=== PATIENT | female | born 2000 | race Caucasian/White ===

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

== ENCOUNTER 2022-08-03 21:19 | Outpatient (REF) | payer OTHER, SELFPAY | END 2022-08-03 21:20 | disposition home or self-care (01) | LOC: LBN 21:19 | PROVIDERS: Visit Provider Nurse Practitioner Family | DX: J02.9 Acute pharyngitis, unspecified (principal) | CPT/HCPCS: 87070 ==

== ENCOUNTER 2023-01-28 16:00 | Emergency (ER) | payer OTHER, SELFPAY ==
[2023-01-28 16:17] VITALS: BP 122/75; PULSE 62; RESP 14; TEMP 37.2; O2SAT 98
[2023-01-28 16:37] LABS: Bilirubin Negative (Negative); Blood Negative (Negative); Clarity Clear (Clear); Glucose Negative (Negative); Ketones Trace mg/dL (Negative); Leukocyte Esterase Moderate (Negative); Nitrite Negative (Negative); Specific Gravity 1.025 (1.005-1.025); pH 8.5 (5-8)
[2023-01-28 16:46] LABS: Bacteria Few HPF (Negative); C & S Indicated? Yes; Casts Negative LPF (Negative); Crystals Negative HPF (Negative); Epithelial Cells Few HPF (Negative); Mucus Negative (Negative); RBC 0-2 HPF (0-2)
[2023-01-28] MEDS: Fluconazole 150 MG TAB PO (17:42)
[2023-01-28] MEDS: predniSONE 20 MG TAB PO (17:42)
[2023-01-28 17:58] VITALS: BP 121/46; PULSE 67; TEMP 36.7; O2SAT 98
--- NOTE | 2023-01-28 22:18 | W.ED.GENAD ---
Discharge Plan Disposition Patient Disposition: Home Discharge Details Clinical Impression: Vulvovaginitis Primary Care Provider: Unknown,Unknown ED Provider: Veronika Altamirano Home Meds and New Rx's Prescriptions: New prednisone 20 mg tablet 20 mg PO DAILY Qty: 4 0RF Continued Mirena 21 mcg/24 hours (8 yrs) 52 mg intrauterine device 1 device intrauterine ONCE Rx Instructions: as a single dose Discharge Instructions Additional Instructions: You received a dose of Diflucan, I will call you regarding the results of your test if this is not yeast Diflucan will treat a yeast infection, you will not need to apply applicators The steroid will likely help with the swelling You may apply some topical 1% hydrocortisone, do not use this more than twice a day for the next 3 days, you may also take Benadryl 25 to 50 mg every 6 hours as needed for itching Cool cloths can help sooth Please return earlier should you have new or worsening complaints Stand Alone Forms: School Release Discharge Data Discharge Date/Time-TO BE ENTERED AT DEPARTURE: 01/28/23 18:00 Medical Decision Making Patient presents with vaginal irritation, swelling, and itching for the past 2 days Sexually active and monogamous with her partner, denies known trauma or new lubricants Last intercourse on Saturday Vaginal exam, Monistat in place, difficult assessment, irritation, angioedema to labia noted, prednisone initiated, will apply 3 days of topical hydrocortisone and Benadryl Given a single dose of Diflucan pending vaginal pathogen return Interestingly vaginal path specimen does not show evidence of yeast, trichomonas, or bacterial vaginosis Return precautions reviewed and patient expressed understanding HPI General Date/Time Provider Initiated Documentation: 01/28/23 16:25. HPI Narrative: 22-year-old female presents with itchy vaginal discharge started on Saturday. Denies any change in products, has tried Monistat without relief in symptoms. Denies any abdominal pain, fever or chills, sexually active and monogamous with her boyfriend reportedly. Denies chance of . 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: 3 PFSH All Active Problems (Updated 01/28/23 @ 17:42 by FUNMI Heck) Vulvovaginitis (Acute) Social History Smoking/Tobacco Use Status: Never Smoking risk assessment performed?: Yes Alcohol Intake: current Drug use: Never Substance use type: does not use Course Vital Signs Vital signs: Vital Signs Temperature 37.2 C 01/28/23 16:17 Pulse 62 01/28/23 16:17 Respiratory Rate 14 01/28/23 16:17 Blood Pressure 122/75 01/28/23 16:17 Pulse Oximetry 98 01/28/23 16:17 Temperature 36.7 C 01/28/23 17:58 Temperature Source Skin 01/28/23 16:17 Pulse 67 01/28/23 17:58 Respiratory Rate 14 01/28/23 16:17 Respiratory Effort Normal 01/28/23 16:48 Blood Pressure 121/46 L 01/28/23 17:58 Blood Pressure Position Sitting 01/28/23 16:17 Pulse Oximetry 98 01/28/23 17:58 Oxygen Delivery Method Room Air 01/28/23 16:17 Oxygen Flow Rate 0 01/28/23 16:17 Pain Level 8 01/28/23 16:46 Lab/Test Results Lab/Test Results: 01/28/23 17:34 Vaginal Vaginitis Screen - Pending 01/28/23 16:27 Urine - Reflex from Ua Urine Culture - Pending Laboratory Tests Range/Units 01/28/23 16:27 Urine Color (Yellow) Yellow Urine Clarity (Clear) Clear Urine pH (5-8) 8.5 H Ur Specific [place] (1.005-1.025) 1.025 Urine Protein (Negative) mg/dL 30 H Urine Ketones (Negative) mg/dL Trace H Urine Blood (Negative) Negative Urine Nitrite (Negative) Negative Urine Bilirubin (Negative) Negative Urine Urobilinogen (Up to 0.2) mg/dL 2.0 H Ur Leukocyte Esterase (Negative) Moderate H Urine RBC (0-2) HPF 0-2 Urine WBC (0-5) HPF 3-5 Ur Epithelial Cells (Negative) HPF Few Urine Crystals (Negative) HPF Negative Urine Bacteria (Negative) HPF Few Urine Casts (Negative) LPF Negative Urine Mucus (Negative) Negative Ur Culture Indicated? Yes Urine Glucose (Negative) mg/dL Negative POC Urine Test Start: 01/28/23 16:24 Freq: Status: Complete Protocol: Document 01/28/23 16:29 JARON (Rec: 01/28/23 16:30 JARON [id number]) Test(Urine)-POC POC- Test(urine) Negative POC- Test(urine) Negative PAWSS Have you Been Recently Intoxicated or Drunk Within the Last 30 days?: No Have you Ever Experienced Previous Episodes of Alcohol Withdrawal?: No Have you ever Experienced Withdrawal Seizures?: No Have you ever Experienced Delirium Tremens(DT)s?: No Have you ever undergone Alcohol Rehabilitation Treatment (i.e, inpt ot outpatient treatment programs)?: No Have you ever Experienced Blackouts?: No Have you ever Combined Alcohol with other Downers within the last 90 days?: No Have you ever Combined Alcohol with any other Substance of Abuse during the last 90 days?: No Result: 0
[2023-01-30 13:35] LABS: Chlamydia Result Negative (Negative); GC Result Negative (Negative)
== END 2023-01-28 18:00 | disposition home or self-care (01) ==
PROVIDERS: Emergency Provider Physician Assistant
DX: N76.0 Acute vaginitis (principal)
CPT/HCPCS: 81025; 87491; 87591; 99283; 81003; 81015; 87086; 87480; 87510; 87660; 99284; J7512

== ENCOUNTER 2023-02-15 18:44 | Emergency (ER) | payer OTHER, SELFPAY ==
[2023-02-15 18:49] VITALS: BP 114/84; PULSE 60; RESP 18; O2SAT 100
[2023-02-15 20:17] VITALS: RESP 18
[2023-02-15] MEDS: Fluconazole 150 MG TAB PO (22:21)
[2023-02-15 22:24] VITALS: PULSE 66; RESP 17; TEMP 36.8; O2SAT 99
--- NOTE | 2023-02-16 18:46 | ED.GENADUL_ITS ---
Discharge Plan Disposition Patient Disposition: Home Condition: Stable Discharge Details Clinical Impression: Vulvovaginitis Primary Care Provider: Unknown,Unknown ED Provider: Veronika Altamirano Home Meds and New Rx's Prescriptions: New fluconazole [Diflucan] 150 mg tablet 150 mg PO Q3D Qty: 1 1RF Continued Mirena 21 mcg/24 hours (8 yrs) 52 mg intrauterine device 1 device intrauterine ONCE Rx Instructions: as a single dose prednisone 20 mg tablet 20 mg PO DAILY Qty: 4 0RF Discharge Instructions Additional Instructions: please follow-up with the assistant real estate manager at your scheduled appt take the next dose of diflucan on Saturday return with fever, chills, or with any new or worsening complaints Discharge Data Discharge Date/Time-TO BE ENTERED AT DEPARTURE: 02/15/23 22:29 Medical Decision Making 22-year-old female presenting with vaginal discharge, took a dose of Diflucan and some prednisone for significant swelling to her labia and had mild improvement initially now her symptoms are much worse and she has excessive vaginal discharge which is white, pelvic exam shows significant caseous material to the entire vaginal vault with erythematous vagina and labia, likely consistent with yeast, will order 2 doses of Diflucan, 72 hours apart and a third dose should she need it in addition to metronidazole as her vaginal path specimen came back positive for Gardnerella and yeast, will likely call in Flagyl, call made to patient, pending return call at this time, no pelvic pain appreciated, afebrile and nontoxic in appearance Has an appointment with GEOSPATIAL DEVELOPER reportedly on Saturday HPI General Date/Time Provider Initiated Documentation: 02/15/23 18:49 . HPI Narrative: This 22-year-old female presents with vaginal discharge for the past several weeks, initially came in with vaginal swelling and concern for yeast, used a dose of Diflucan without improvement, feels as though the prednisone helped her symptoms until they worsened dramatically over the course of the past several days. Denies chance of . Had recent STD testing per patient. No new partner, sexually active and monogamous per patient. Related Data Home Medications Medication Instructions Recorded Confirmed levonorgestrel 21 mcg/24 hours (8 1 device intrauterine ONCE 08/03/22 01/28/23 yrs) 52 mg intrauterine device (Mirena) prednisone 20 mg tablet 20 mg PO DAILY #4 tabs 01/28/23 fluconazole 150 mg tablet 150 mg PO Q3D 2 doses #1 tab 02/15/23 (Diflucan) Previous Rx's Medication Instructions Recorded prednisone 20 mg tablet 20 mg PO DAILY #4 tabs 01/28/23 fluconazole 150 mg tablet 150 mg PO Q3D 2 doses #1 tab 02/15/23 (Diflucan) Allergies Allergy/AdvReac Type Severity Reaction Status Date / Time No Known Allergies Allergy Verified 01/28/23 16:50 General Stated Complaint: [employer] IVET: 3 PFSH All Active Problems (Updated 02/15/23 @ 22:08 by FUNMI Heck) Vulvovaginitis (Acute) Social History Smoking/Tobacco Use Status: Never Smoking risk assessment performed?: Yes Alcohol Intake: current Drug use: Never Substance use type: does not use Course Vital Signs Vital signs: Vital Signs Pulse 60 02/15/23 18:49 Respiratory Rate 18 02/15/23 18:49 Blood Pressure 114/84 02/15/23 18:49 Pulse Oximetry 100 02/15/23 18:49 Temperature 36.8 C 02/15/23 22:24 Pulse 66 02/15/23 22:24 Respiratory Rate 17 02/15/23 22:24 Respiratory Effort Normal, Non-Labored 02/15/23 20:17 Respiratory Depth Normal 02/15/23 20:17 Respiratory Pattern Normal 02/15/23 20:17 Blood Pressure 114/84 02/15/23 18:49 Blood Pressure Position Sitting 02/15/23 18:49 Pulse Oximetry 99 02/15/23 22:24 Oxygen Delivery Method Room Air 02/15/23 18:49 Oxygen Flow Rate 0 02/15/23 18:49 Lab/Test Results Lab/Test Results: 02/15/23 22:27 Vaginal Vaginitis Screen - Final
== END 2023-02-15 22:29 | disposition home or self-care (01) ==
PROVIDERS: Emergency Provider Physician Assistant
DX: N76.0 Acute vaginitis (principal)
CPT/HCPCS: 99283; 87480; 87510; 87660

== ENCOUNTER 2023-03-01 20:59 | Outpatient (REF) | payer OTHER, SELFPAY ==
[2023-03-01 21:16] LABS: Bilirubin Negative (Negative); Blood Trace-lysed (Negative); Clarity Sl Cloudy (Clear); Glucose Negative (Negative); Ketones Negative (Negative); Leukocyte Esterase Moderate (Negative); Nitrite Negative (Negative); Urobilinogen 0.2 mg/dL (Up to 0.2)
[2023-03-01 21:26] LABS: Bacteria Moderate HPF (Negative); C & S Indicated? No/Sq. Contamination; Casts Negative LPF (Negative); Crystals Negative HPF (Negative); Epithelial Cells Many HPF (Negative); Mucus Negative (Negative); Other Cells Few Yeast (Negative); RBC 0-2 HPF (0-2)
== END 2023-03-01 21:00 | disposition home or self-care (01) ==
LOC: LBN 20:59
PROVIDERS: Visit Provider Nurse Practitioner Family
DX: N76.0 Acute vaginitis (principal); N39.0 Urinary tract infection, site not specified
CPT/HCPCS: 81003; 81015; 87480; 87510; 87660

== ENCOUNTER 2023-08-12 20:43 | Emergency (ER) | payer OTHER, SELFPAY ==
[2023-08-12 20:45] VITALS: BP 132/94; PULSE 82; RESP 16; TEMP 37.1; O2SAT 100
[2023-08-12 22:15] LABS: Bilirubin Negative (Negative); Blood Negative (Negative); Clarity Clear (Clear); Glucose Negative (Negative); Ketones Negative (Negative); Leukocyte Esterase Negative (Negative); Nitrite Negative (Negative); Urobilinogen 0.2 mg/dL (Up to 0.2)
[2023-08-12] MEDS: Ketorolac 15 MG/ML VIAL 7.5 MG IM (22:42)
[2023-08-12] MEDS: Acetaminophen 325 MG TAB 650 MG PO (22:42)
[2023-08-12] MEDS: diazePAM 5 MG TAB 2.5 MG PO ×2 (22:42→23:56)
--- NOTE | 2023-08-12 23:41 | ED.PROG_ITS ---
Date of service: 08/12/23 Time of Service: 23:42 Medical Decision Making This patient was signed out to me. Please see previous notes for H&P and initial eval. In brief, 22yo F with low back pain after starting softball. Pain minimally improved by valium, toradol, tylenol. Getting additional medication including lidocaine patch and will get XR. Signed out pending XR and reassessment. Plain films pelvis and lumbar spine independently reviewed; no displaced fracture on my view, agree with radiology read below. On my assessment patient with persistent low lumbar and sacral back pain, worse on the left, reproducible with palpation. Normal LE neurologic exam and negative straight leg raise bilaterally. No red flags on history or exam for back pain. Agree with prior clinician assessment of likely MSK back pain. Advised symptomatic treatment at home, PCP followup. Discharged home; discharge instructions and return precautions were reviewed with patient who verbalized understanding. All questions were answered and she is in agreement with the plan. Ambulated out of the department. Imaging Data Radiologic Study: Imaging: X-Ray Radiologist's impression: LS spine: IMPRESSION: No acute osseous abnormality. If symptoms persist, follow- up imaging is advised. Pelvis: IMPRESSION: No acute osseous abnormality. If symptoms persist, follow-up imaging is advised. Quality:SDOH Health Related Social Needs: No Data to Display Discharge Plan Disposition Patient Disposition: Home Condition: Stable Discharge Details Clinical Impression: Lumbar back pain Primary Care Provider: Aleyda,[facility] ED Provider: Niki Chanel Home Meds and New Rx's Prescriptions: New prednisone 20 mg tablet 40 mg PO DAILY Qty: 8 0RF cyclobenzaprine 10 mg tablet 10 mg PO Q8H Qty: 10 0RF Continued Mirena 21 mcg/24 hours (8 yrs) 52 mg intrauterine device 1 device intrauterine ONCE Rx Instructions: as a single dose Discharge Instructions Instructions: Low Back Strain (ED) Additional Instructions: Take the prednisone daily as prescribed Take the Flexeril as needed for musculoskeletal pain Recommend light stretching Tylenol 650 every 4-6 hours Hold Motrin until the prednisone is completed Recommend physical therapy with persistent pain Call your primary care doctor today to schedule an appointment within one week to follow up on your visit today. Please return with strength or sensation changes to extremities, changes in bowel or bladder, fever, chills, or should he have new or worsening complaints
--- NOTE | 2023-08-12 23:42 | W.ED.GENAD ---
Discharge Plan Disposition Patient Disposition: Home Condition: Stable Discharge Details Clinical Impression: Lumbar back pain [facility] Niki Chanel Home Meds and New Rx's Prescriptions: New prednisone 20 mg tablet 40 mg PO DAILY Qty: 8 0RF cyclobenzaprine 10 mg tablet 10 mg PO Q8H Qty: 10 0RF Continued Mirena 21 mcg/24 hours (8 yrs) 52 mg intrauterine device 1 device intrauterine ONCE Rx Instructions: as a single dose Discharge Instructions Instructions: Low Back Strain (ED) Additional Instructions: Take the prednisone daily as prescribed Take the Flexeril as needed for musculoskeletal pain Recommend light stretching Tylenol 650 every 4-6 hours Hold Motrin until the prednisone is completed Recommend physical therapy with persistent pain Call your primary care doctor today to schedule an appointment within one week to follow up on your visit today. Please return with strength or sensation changes to extremities, changes in bowel or bladder, fever, chills, or should he have new or worsening complaints Discharge Data Discharge Date/Time-TO BE ENTERED AT DEPARTURE: 08/13/23 01:30 HPI General Date/Time Provider Initiated Documentation: 08/12/23 21:20. HPI Narrative: This 22-year-old female presents with back pain. Started a new softball routine approximately 3 weeks ago and pain is worsened since that time. States it has dramatically worsened in the past 24 hours. Denies any changes in bowel or bladder. Denies chance of . Denies history of illicit drug use. Denies any abdominal discomfort. Otherwise reportedly healthy. Pain is exacerbated with movement. States the pain radiates down bilateral lower extremities. Lifts weights but only about 10 pounds and denies known traumatic injury. Denies any abdominal discomfort or hematuria. Denies dysuria. Related Data Home Medications Medication Instructions Recorded Confirmed levonorgestrel 21 mcg/24 hours (8 1 device intrauterine ONCE 08/03/22 08/12/23 yrs) 52 mg intrauterine device (Mirena) cyclobenzaprine 10 mg tablet 10 mg PO Q8H #10 tabs 08/12/23 prednisone 20 mg tablet 40 mg (2 x 20 mg) PO DAILY #8 tabs 08/12/23 Previous Rx's Medication Instructions Recorded cyclobenzaprine 10 mg tablet 10 mg PO Q8H #10 tabs 08/12/23 prednisone 20 mg tablet 40 mg (2 x 20 mg) PO DAILY #8 tabs 08/12/23 Allergies Allergy/AdvReac Type Severity Reaction Status Date / Time No Known Allergies Allergy Verified 08/12/23 20:52 General Stated Complaint: Nk/Back Pain IVET: 4 Course Vital Signs Vital signs: Vital Signs Temperature 37.1 C 08/12/23 20:45 Pulse 82 08/12/23 20:45 Respiratory Rate 16 08/12/23 20:45 Blood Pressure 132/94 H 08/12/23 20:45 Pulse Oximetry 100 08/12/23 20:45 Temperature 37.1 C 08/12/23 20:45 Temperature Source Temporal Artery Scan 08/12/23 20:45 Pulse 82 08/12/23 20:45 Respiratory Rate 16 08/12/23 20:45 Respiratory Effort Normal, Non-Labored 08/12/23 20:53 Blood Pressure 132/94 H 08/12/23 20:45 Blood Pressure Position Standing 08/12/23 20:45 Pulse Oximetry 100 08/12/23 20:45 Oxygen Delivery Method Room Air 08/12/23 20:45 Oxygen Flow Rate 0 08/12/23 20:45 Pain Level 8 08/12/23 22:15 Lab/Test Results Lab/Test Results: Laboratory Tests Range/Units 08/12/23 22:05 Urine Color (Yellow) Yellow Urine Clarity (Clear) Clear Urine pH (5-8) 7.0 Ur Specific [place] (1.005-1.025) 1.020 Urine Protein (Neg-Trace) mg/dL Negative Urine Ketones (Negative) mg/dL Negative Urine Blood (Negative) Negative Urine Nitrite (Negative) Negative Urine Bilirubin (Negative) Negative Urine Urobilinogen (Up to 0.2) mg/dL 0.2 Ur Leukocyte Esterase (Negative) Negative Urine Glucose (Negative) mg/dL Negative POC- Test(urine) Negative Medical Decision Making 22-year-old female presenting with back pain with radiation down her lower extremities, worsening over the past 3 weeks, worse in the past 24 hours Patient is afebrile and nontoxic, she has no abdominal tenderness on exam No CVA tenderness appreciated, tenderness bilaterally in the sacroiliac regions and some mild midline tenderness, negative Babinski, strength and sensation intact bilaterally to lower extremities, DTRs intact Vital stable at time of assessment, clinically now evidence of cauda equina syndrome Will start patient on prednisone and muscle relaxants with Toradol At time of reassessment, patient stating that she is unable to move secondary to discomfort I see no clear indication for imaging or blood work at time of assessment, urinalysis does not show evidence of acute abnormality and POC negative Patient continues to have discomfort, will order repeat dose of 2.5 of Valium, Lidoderm patches, and transition care to pending reassessment Quality:SDOH Health Related Social Needs: No Data to Display PFSH All Active Problems (Updated 08/12/23 @ 23:47 by FUNMI Heck) Lumbar back pain (Acute) Medical History Ovarian cyst Surgical History H/O ovarian cystectomy (~02/2022) [facility], [facility] Family History Other Diabetes Social History Smoking/Tobacco Use Status: Never Smoking risk assessment performed?: Yes Alcohol Intake: current Drug use: Never Substance use type: does not use Household members: friend(s) Education Level: college Sexually active: Yes Current gender identity: female What type of physical activity do you participate in: regular exercise Frequency: 5-6 times per week Seatbelt use: always Helmet use: Yes Drive intox or ride w/intox mobile lounge driver or operator: No Do you feel safe at home: Yes Female Reproductive History Menstrual Age of Menarche: 12 Duration of menses: 3-5 days control method: progestin IUCD History History 0 Para Hx # Term Pregnancies Multiple births Hx # Pregnancies Ectopic pregnancies AB induced Hx Number of Living Children AB spontaneous
[2023-08-12] MEDS: Lidocaine 5% Patch 1 PATCH TP (23:56)
--- NOTE | 2023-08-13 01:14 | DI.VRAD_ITS ---
PROCEDURE INFORMATION: Exam: XR Lumbosacral Spine Exam date and time: 08/13/2023 12:33 AM Age: 22 years old Clinical indication: Low back pain TECHNIQUE: Imaging protocol: Radiologic exam of the lumbosacral spine. Views: 2 or 3 views. COMPARISON: US PELVIS TRANSVAGINAL 03/06/2023 8:32 AM FINDINGS: Bones/joints: No acute fracture observed. Endplates appear intact. No anterolisthesis or retrolisthesis. No significant disc space narrowing. Normal sacroiliac joints. Soft tissues: Unremarkable. IMPRESSION: No acute osseous abnormality. If symptoms persist, follow-up imaging is advised. Dictated and Authenticated by: Adán Baker MD. Ordering:JORJE Prince MD
--- NOTE | 2023-08-13 01:15 | DI.VRAD_ITS ---
PROCEDURE INFORMATION: Exam: XR Pelvis Exam date and time: 08/13/2023 12:34 AM Age: 22 years old Clinical indication: Other: Low back pain TECHNIQUE: Imaging protocol: Radiologic exam of the pelvis. Views: 1 or 2 view. COMPARISON: CR XR LUMBAR SPINE AP, LAT 08/13/2023 12:33 AM FINDINGS: Bones/joints: No fracture. No dislocation. No bony erosion or destructive change. Intact pubic rami. No significant narrowing is observed in the hips. Soft tissues: No soft tissue air. No radiopaque foreign bodies. Organs: An intrauterine device is observed. IMPRESSION: No acute osseous abnormality. If symptoms persist, follow-up imaging is advised. Dictated and Authenticated by: Adán Baker MD. Ordering:JORJE Prince MD
--- NOTE | 2023-08-13 23:45 | DI.RAD_ITS ---
Exam(s) XR PELVIS AP EXAM: XR PELVIS AP CLINICAL HISTORY: low back pain. TECHNIQUE: 2D digital imaging was performed.One images were obtained. COMPARISON: No exams were available for comparison FINDINGS: BONES: No acute fracture is present. No bony destructive lesion is seen. JOINTS: No dislocation present. Sacroiliac joints and symphysis pubis are unremarkable. SOFT TISSUE: There is an IUD in the pelvis. IMPRESSION: Unremarkable radiographs of the pelvis. DATA REPOSITORY: RADIATION DOSE DELIVERED:
--- NOTE | 2023-08-13 23:45 | DI.RAD_ITS ---
Exam(s) XR LUMBAR SPINE AP, LAT EXAM: XR LUMBAR SPINE AP, LAT CLINICAL HISTORY: low back pain. TECHNIQUE: 2D digital imaging was performed of the lumbar spine. Three images were obtained. AP, l ateral and L5-S1 spot views were obtained. COMPARISON: No exams were available for comparison FINDINGS: BONES: No fracture or destructive lesion. Vertebral bodies are unremarkable. No facet hypertrophy mac ntified. DISKS: Intervertebral disc spaces are maintained. ALIGNMENT: Lumbar spinal alignment is within normal limits. No spondylolysis or spondylolisthesis. SOFT TISSUE: Normal. IMPRESSION: Unremarkable radiographs of the lumbar spine. DATA REPOSITORY: RADIATION DOSE DELIVERED:
== END 2023-08-13 01:30 | disposition home or self-care (01) ==
PROVIDERS: Emergency Medicine; Emergency Provider Student in an Organized Health Care Education/Training Program
DX: M54.50 Low back pain, unspecified (principal)
CPT/HCPCS: 00123; 81025; 99284; 72100; 72170; 81003; J1885

== ENCOUNTER 2023-12-02 19:11 | Outpatient (REF) | payer OTHER, SELFPAY | END 2023-12-02 19:12 | disposition home or self-care (01) | LOC: NCHCN 19:11 | PROVIDERS: Visit Provider Physician Assistant | DX: J02.9 Acute pharyngitis, unspecified (principal) | CPT/HCPCS: 87070 ==

== ENCOUNTER 2023-12-04 15:43 | Outpatient (REF) | payer OTHER, SELFPAY ==
[2023-12-04 21:29] LABS: Abs Immature Grans 0.05 10^3/uL (0.0-0.06); Absolute Basophil Count 0.04 10^3/uL (0.0-0.2); Absolute Eosinophil Count 0.24 10^3/uL (0.0-0.7); Absolute Lymphocyte Count 1.52 10^3/uL (1.2-3.4); Absolute Monocyte Count 0.95 10^3/uL (0.1-0.8); Absolute Neutrophil Count 6.62 10^3/uL (1.2-6.7); Basophils % 0.4 %; Eosinophils % 2.5 %; HCT 38.4 % (36.0-46.0); HGB 13.3 g/dL (11.2-15.7); Immature Grans % 0.5 %; Lymphocytes % 16.1 %; MCH 30.8 pg (27.0-33.0); MCHC 34.6 % (32.0-36.0); MCV 89 fL (80-95); MPV 12.4 fL (8.0-11.0); Monocytes % 10.1 %; Neutrophils % 70.4 %; Platelet Count 202 10^3/uL (130-400); RBC 4.32 10^6/uL (3.93-5.22); RDW 11.2 % (11.7-14.6); RDW-SD 36.4 fL; WBC 9.42 10^3/uL (4.4-10.8)
[2023-12-04 22:41] LABS: ALT 13 U/L (14-59); AST 14 U/L (15-37); Albumin 4.1 g/dL (3.4-5.0); Alkaline Phosphatase 87 U/L (46-116); Anion Gap 13.6 mmol/L (3-11); BUN 11 mg/dL (7-18); Bilirubin, Total 0.41 mg/dL (0.2-1.0); CO2 25.4 mmol/L (21.0-32.0); CREATININE 0.9 mg/dL (0.55-1.02); Calcium 9.1 mg/dL (8.5-10.1); Chloride 99 mmol/L (98-107); Estimated GFR 93.28 (mL/min/1.73m2); Glucose 83 mg/dL (74-106); Sodium 138 mmol/L (136-145); Total Protein 7.9 g/dL (6.4-8.2)
[2023-12-04 23:58] LABS: Amylase 19 U/L (25-115); Lipase 16 U/L (16-77)
== END 2023-12-04 15:44 | disposition home or self-care (01) ==
LOC: LBN 15:43
PROVIDERS: Visit Provider Physician Assistant
DX: B27.90 Infectious mononucleosis, unspecified without complication (principal)
CPT/HCPCS: 80053; 83690; 82150; 85025

== ENCOUNTER 2024-02-07 01:36 | Outpatient (CLI) | payer OTHER, SELFPAY ==
[2024-02-07 11:02] LABS: Abs Immature Grans 0.02 10^3/uL (0.0-0.06); Absolute Basophil Count 0.05 10^3/uL (0.0-0.2); Absolute Eosinophil Count 0.04 10^3/uL (0.0-0.7); Absolute Lymphocyte Count 2.05 10^3/uL (1.2-3.4); Absolute Monocyte Count 0.48 10^3/uL (0.1-0.8); Absolute Neutrophil Count 2.32 10^3/uL (1.2-6.7); Eosinophils % 0.8 %; HCT 36.8 % (36.0-46.0); HGB 12.2 g/dL (11.2-15.7); Immature Grans % 0.4 %; Lymphocytes % 41.3 %; MCH 30.9 pg (27.0-33.0); MCHC 33.2 % (32.0-36.0); MCV 93 fL (80-95); MPV 11.1 fL (8.0-11.0); Monocytes % 9.7 %; Neutrophils % 46.8 %; Platelet Count 232 10^3/uL (130-400); RBC 3.95 10^6/uL (3.93-5.22); RDW-SD 41.6 fL; WBC 4.96 10^3/uL (4.4-10.8)
[2024-02-07 11:19] LABS: INR 1.1 (0.9-1.1)
[2024-02-07 11:36] LABS: Anion Gap 7.4 mmol/L (3-11); BUN 9 mg/dL (7-18); CO2 27.6 mmol/L (21.0-32.0); CREATININE 0.8 mg/dL (0.55-1.02); Calcium 8.7 mg/dL (8.5-10.1); Chloride 104 mmol/L (98-107); Estimated GFR 107.44 (mL/min/1.73m2); Glucose 90 mg/dL (74-106); Potassium 4.3 mmol/L (3.5-5.1); Sodium 139 mmol/L (136-145)
== END 2024-02-07 01:37 | disposition home or self-care (01) ==
LOC: LBO 01:37
PROVIDERS: Visit Provider Otolaryngology
DX: Z01.818 Encounter for other preprocedural examination (principal)
CPT/HCPCS: 36415; 80048; 85025; 85610; 85730

== ENCOUNTER 2024-09-03 10:04 | Outpatient (CLI) | payer OTHER, SELFPAY ==
--- NOTE | 2024-09-02 15:01 | DI.RAD_ITS ---
Exam(s) XR SHOULDER RT COMPLETE 2+V EXAM: XR SHOULDER RT COMPLETE 2+V CLINICAL HISTORY: RIGHT SHOULDER PAIN. TECHNIQUE: 2D digital imaging was performed. Two views. COMPARISON: No exams were available for comparison FINDINGS: BONES: No acute fracture is present. No bony destructive lesion is seen. JOINTS: No dislocation present. The AC joint appears intact. There is normal alignment at the gleno humeral joint SOFT TISSUE: Normal. IMPRESSION: Unremarkable radiographs of the right shoulder. DATA REPOSITORY: RADIATION DOSE DELIVERED:
== END 2024-09-03 10:05 | disposition home or self-care (01) ==
LOC: DIORS 10:04
PROVIDERS: Visit Provider Student in an Organized Health Care Education/Training Program
DX: M25.511 Pain in right shoulder (principal); S43.431A Superior glenoid labrum lesion of right shoulder, initial encounter
CPT/HCPCS: 73030

== ENCOUNTER 2024-10-07 01:56 | Outpatient (CLI) | payer OTHER, SELFPAY ==
--- NOTE | 2024-10-07 06:45 | DI.MRI_ITS ---
Exam(s) MR UPPER JOINT RT W EXAM: MR UPPER JOINT RT W CLINICAL HISTORY: ? SLAP TEAR,BIC TENDINOP,SPLIT TEARING, PASTA. TECHNIQUE: Multiplanar multisequence MRI arthrogram was performed. COMPARISON: CR XR SHOULDER RT COMPLETE 2+V from 09/02/2024 RF RF ARTHROGRAM RAD W CT OR MRI from 10/07/2024 FINDINGS: BONES: There is no fracture or contusion pattern. Mild marrow edema seen in the superior aspect of th e humeral head. This is nonspecific. JOINTS: The acromioclavicular joint is normal. The glenohumeral joint is normal. TENDONS: Supraspinatus: Unremarkable. Infraspinatus: Unremarkable. Subscapularis: Unremarkable. Teres Minor: Unremarkable. Biceps and [place]: Unremarkable. MUSCLES: Unremarkable. No evidence of muscular fatty atrophy. GLENOID LABRUM: The labrum is unremarkable. No evidence of contrast seen within the labrum to sugges t a tear. SOFT TISSUES: Unremarkable. LIGAMENTS: Unremarkable. OTHER: Subacromial and subdeltoid bursae are unremarkable. IMPRESSION: 1. No evidence of a rotator cuff tear or biceps tendon tear. 2. No evidence of a labral tear. 3. Nonspecific very mild marrow edema seen in the superior humeral head adjacent to the greater tuber osity. DATA REPOSITORY:
--- NOTE | 2024-10-07 10:07 | DI.RAD_ITS ---
Exam(s) RF ARTHROGRAM RAD W CT OR MRI EXAM: RF ARTHROGRAM RAD W CT OR MRI CLINICAL HISTORY: ?SLAP,BIC TENDIN, SPLIT TEARING, PASTA,PAIN TECHNIQUE: 2D and realtime digital imaging was performed. CONTRAST MATERIAL: Water soluble contrast was administered. COMPARISON: No exams were available for comparison FINDINGS: Fluoroscopy was provided for Dr. Rod during the performance of a right shoulder arthrogram. The p atient was prepped and draped in the usual sterile fashion. Local anesthesia was administered. The nidhi int was accessed using a spinal needle and confirmed under fluoroscopy. A solution containing normal saline, Omnipaque and Dotarem was injected into the joint. Images were obtained. The patient tolerat ed the procedure well. Final instructions were given to the patient and they left the department in g ood condition. IMPRESSION: Successful arthrogram under fluoroscopic guidance. The patient was advised to return to the emergency room if any signs of bleeding or infection occur. RADIATION DOSE DELIVERED: wei Rojas=3.14 mGy
[2024-10-07] MEDS: Gadoterate meglumine 20 ML VIAL IVP (10:26)
[2024-10-07] MEDS: Bupivacaine 0.5% Pres-Free 10 ML VIAL IJ (10:26)
[2024-10-07] MEDS: Omnipaque 300 MG/ML 10 ML BTL IJ (10:27)
== END 2024-10-07 02:16 ==
PROVIDERS: PCP Registered Nurse; Visit Provider Student in an Organized Health Care Education/Training Program
DX: S43.431D Superior glenoid labrum lesion of right shoulder, subsequent encounter (principal); X58.XXXD Exposure to other specified factors, subsequent encounter
CPT/HCPCS: 23350; 73040; 73222; J0665